=== PATIENT | male | born 1995 | race Caucasian/White ===

== ENCOUNTER 2020-11-06 09:17 | Emergency (ER) | payer BC ==
--- NOTE | 2020-11-06 09:20 | EDM.PDOC ---
ED HPI GENERAL MEDICAL PROBLEM - General Chief Complaint: Respiratory Problem Stated Complaint: BRONCHITIS Time Seen by Provider: 11/06/20 09:20 Source of Information: Reports: Patient History Limitations: Reports: No Limitations - History of Present Illness INITIAL COMMENTS - FREE TEXT/NARRATIVE: 25-year-old male past medical history frequent bronchitis presents for concern for bronchitis. Patient notes that for the last couple of days he has had what he initially attributed to seasonal allergy type symptoms with runny nose and mild nonproductive cough. Last night began to develop a sore throat and worsening cough. Denies any shortness of breath. No chest pain. No fevers. Still retains sense of taste and smell. No nausea or vomiting. No body aches. States that it feels similar to when he has had bronchitis in the past. He is a smoker. Chest Pain Score (Numeric/FACES): 1 - Related Data Allergies Allergy/AdvReac Type Severity Reaction Status Date / Time No Known Allergies Allergy Verified 11/06/20 09:40 Home Meds: Home Meds Albuterol [Ventolin HFA] 1 puff INH Q6H PRN #1 inhaler 11/06/20 [Rx] predniSONE 40 mg PO DAILY 5 Days #10 tab 11/06/20 [Rx] ED ROS GENERAL - Review of Systems Review Of Systems: Comprehensive ROS is negative, except as noted in HPI. ED EXAM, GENERAL - Physical Exam Exam: See Below Exam Limited By: No Limitations General Appearance: Alert, WD/WN, No Apparent Distress Ears: Hearing Grossly Normal Throat/Mouth: Normal Inspection, Normal Oropharynx, Normal Voice, No Airway Compromise Head: Atraumatic, Normocephalic Neck: Normal Inspection Respiratory/Chest: No Respiratory Distress, Lungs Clear, Normal Breath Sounds, No Accessory Muscle Use Cardiovascular: Normal Peripheral Pulses Extremities: Normal Inspection Neurological: Alert, Normal Cognition, Normal Gait Psychiatric: Normal Affect, Normal Mood Skin Exam: Warm, Dry, Intact, Normal Color Course - Vital Signs Last Recorded V/S: Last Vital Signs Temp 97.3 F 11/06/20 09:40 Pulse 82 11/06/20 09:40 Resp 18 11/06/20 09:40 BP 124/75 11/06/20 09:40 Pulse Ox 99 11/06/20 09:40 - Re-Assessments/Exams Free Text/Narrative Re-Assessment/Exam: 11/06/20 09:53 We will get chest x-ray to rule out emergent cardial pulmonary pathology. Offered patient Covid testing which he declines. I do think Covid is less likely given lack of fever, shortness of breath, chest tightness, body aches, loss of taste and smell. Will prescribe patient prednisone and albuterol for bronchitis. Follow-up x-ray and disposition accordingly. 11/06/20 10:15 Chest x-ray is unremarkable. Will discharge patient with prednisone and albuterol inhaler. Recommend PMD follow-up. Return precautions discussed. Departure - Departure Time of Disposition: 10:15 Disposition: Home, Self-Care 01 Condition: Good Clinical Impression: Bronchitis - Discharge Information Prescriptions: predniSONE 40 mg PO DAILY 5 Days #10 tab Albuterol [Ventolin HFA] 1 puff INH Q6H PRN #1 inhaler PRN Reason: Wheezing Instructions: Acute Bronchitis, Adult Referrals: PCP,None [Primary Care Provider] - Forms: ED Department Discharge Additional Instructions: Your chest x-ray does not reveal any evidence of pneumonia. I sent 2 prescriptions to [facility] for you. One of them is prednisone which is a steroid to take for the next 5 days to help with inflammation of the lungs. The other is an albuterol inhaler to use as needed for shortness of breath and wheezing. The following information is given to patients seen in the emergency department who are being discharged to home. This information is to outline your options for follow-up care. We provide all patients seen in our emergency department with a follow-up referral. The need for follow-up, as well as the timing and circumstances, are variable depending upon the specifics of your emergency department visit. If you don't have a primary care physician on staff, we will provide you with a referral. We always advise you to contact your personal physician following an emergency department visit to inform them of the circumstance of the visit and for follow-up with them and/or the need for any referrals to a consulting specialist. The emergency department will also refer you to a specialist when appropriate. This referral assures that you have the opportunity for follow-up care with a specialist. All of these measure are taken in an effort to provide you with optimal care, which includes your follow-up. Under all circumstances we always encourage you to contact your private physician who remains a resource for coordinating your care. When calling for follow-up care, please make the office aware that this follow-up is from your recent emergency room visit. If for any reason you are refused follow-up, please contact the [facility] Department at and asked to speak to the emergency department charge nurse. Please follow up with your primary care physician. If you do not have a primary care physician, see below: [facility] [address] [place] [id number] [facility] [address] [place] [address] [facility] [address] [place] [id number] Sepsis Event Note (ED) - Focused Exam Vital Signs: Vital Signs Temp Pulse Resp BP Pulse Ox 11/06/20 09:40 97.3 F 82 18 124/75 99
--- NOTE | 2020-11-06 10:03 | CR ---
INDICATION: Cough. TECHNIQUE: Chest 1 view. COMPARISON: None FINDINGS: Cardiovascular and mediastinum: Heart size and vasculature are normal in caliber and appearance. Mediastinum is within normal limits. Lungs and pleural space: Lungs are clear. No sign of infiltrate or mass. No sign of pleural effusion. No pneumothorax. Bones and soft tissues: No significant findings. IMPRESSION: Lungs are clear. Dictated by Adan Tam MD @ 11/06/2020 10:02:[address] Adan Tam @ Nov 06 2020 10:02AM
--- NOTE | 2020-11-07 08:11 | PCM.SN.2 ---
- Free Text/Narrative Note: Patient was called back on 82 at 0 8:10 AM. Patient notes that he is feeling better, he is still complaining of cough but seems like it is improving. He is no longer having headaches. He notes that he feels like the mucus is "coming up". He had no other concerns at this time and states that he will continue taking his medications. Explained to patient again return precautions and encouraged him to follow-up with his primary care physician. Patient states that he understands and appreciates the advice.
== END 2020-11-06 10:23 | disposition home or self-care (01) ==
LOC: EDBD 09:17 → MW.ED 09:17
DX: J40 Bronchitis, not specified as acute or chronic (principal)
CPT/HCPCS: 71045; 71045-26; 99283-25